=== PATIENT | male | born 1990 | race Caucasian/White ===

== ENCOUNTER 2016-08-02 22:21 | Emergency (ER) | payer OTHER ==
[~2016-08-02] VITALS: Ht 167.6 cm; Wt 65.8 kg
[2016-08-02] MEDS ORDERED: IV NORMAL SALINE 1000ML BAG 1,000 ML IV ONE (22:45)
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
[2016-08-02 22:54] LABS: BASO % 0 % (0-3); EOS % 1 % (0-3); HEMOGLOBIN 16.6 g/dL (13.0-17.5); LYMPH # 2.4 x10^3/uL (1.0-4.8); LYMPH % 17 % (24-48); MEAN CORPUSCULAR HEMOGLOBIN 29 pg (25-35); MEAN CORPUSCULAR HGB CONC 33 g/dL (31-37); MEAN CORPUSCULAR VOLUME 86 fL (79-100); MONO % 6 % (0-9); NEUT % 76 % (31-73); PLATELET COUNT 249 x10^3/uL (140-400); RED CELL DISTRIBUTION WIDTH 13.2 % (11.5-14.5)
[2016-08-02] MEDS ORDERED: DIPHTH,PERTUSS(ACELL),TET TOX 0.5 ML DISP.SYRIN. VAX IM ONE (23:15)
[2016-08-02 23:18] LABS: CREATININE 0.9 mg/dL (0.7-1.3); GFR 102.8; POTASSIUM 3.6 mmol/L (3.5-5.1)
[2016-08-02] MEDS ORDERED: LIDOCAINE 1% / SOD BICARB 8.4% 20 ML VIAL. IJ ONE ×2 (23:28→23:34)
[2016-08-02] MEDS ORDERED: LIDOCAINE 1%/EPI 1:100,000 20 ML VIAL. INJ ONE (23:30)
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
[2016-08-03] MEDS ORDERED: HYDR-965 PO (00:32)
[2016-08-03] MEDS ORDERED: CEPH-264 PO (00:32)
[2016-08-03 00:50] VITALS: BP 119/71
[2016-08-03] MEDS ORDERED: LIDOCAINE 1% / SOD BICARB 8.4% 20 ML VIAL. IJ ONE ×2 (02:00)
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
== END 2016-08-03 01:00 | disposition home or self-care (01) ==
LOC: ER 22:21
DX: S91.012A Laceration without foreign body, left ankle, initial encounter (principal); S20.311A Abrasion of right front wall of thorax, initial encounter; S70.311A Abrasion, right thigh, initial encounter; V29.9XXA Motorcycle rider (driver) (passenger) injured in unspecified traffic accident, initial encounter; Y92.488 Other paved roadways as the place of occurrence of the external cause; Y93.89 Activity, other specified; Y99.8 Other external cause status
CPT/HCPCS: 12006; 36415; 70450; 71010; 72125; 72170; 73610; 73630; 80048; 80320; 85027; 96360; 99285; J3490; J7030; 29515; G0480